=== PATIENT | female | born 1985 | race Two or more races ===

== ENCOUNTER 2021-01-15 18:00 | Emergency (ER) | payer MEDICAID ==
[~2021-01-15] VITALS: Ht 157.5 cm; Wt 66.0 kg
--- NOTE | 2021-01-15 18:36 | PHYS DOC ---
Past History Past Medical History: Anemia, Bronchitis Past Surgical History: Gastric Bypass Smoking: Cigarettes General Adult EDM: Chief Complaint: SHORTNESS OF BREATH HPI: HPI: ".. I ve been sick..the last couple of days..same as my .. been coughing up some discolor sputum.. feels like I got a fever..I worried.. I may gotten the COVID.. ..He had it earlier in the year.. " Patient is a 35 year old female who presents with above hx and complaints of dyspnea, myalgia, arthralgia, malaise, subjective fevers, cough with productive sputum, and increased wheezing. Patient states she has been ill the last couple days. Patient does smoke tobacco. Patient has not gotten Covid vaccination. Patient has not gotten flu vaccination. Patient does have a significant past medical history of gastric bypass, anemia, and bronchitis. Patient denies any history of DVT, or cardiac disorder, or coagulopathy. Patient denies any history of immunosuppression. No specific ill contacts other than her . No recent travel outside [facility]. Patient has not gotten Covid vaccination or flu vaccination. Patient never had a Pneumovax. Pt. follows with Sy Yeung. Review of Systems: Review of Systems: Constitutional: Subjective complaints of fever and chills Eyes: Denies change in visual acuity HENT: Denies nasal congestion or sore throat Respiratory: Complains of cough, sputum production, wheezing and shortness of breath Cardiovascular: Denies chest pain or edema GI: Denies abdominal pain, nausea, vomiting, bloody stools or diarrhea : Denies dysuria Musculoskeletal: Complains of generalized malaise arthralgia myalgia Integument: Denies rash Neurologic: Denies headache, focal weakness or sensory changes Endocrine: Denies polyuria or polydipsia Lymphatic: Denies swollen glands Psychiatric: Complains of anxiety Family History: Family History: Noncontributory to presentation Current Medications: Current Meds: See nursing for home meds Allergies: Allergies: Allergies Coded Allergies Type Severity Reaction Last Updated Verified NSAIDS (Non-Steroidal Anti-Inflamma Allergy Unknown 01/15/21 Yes bupropion Allergy Unknown 01/15/21 Yes paroxetine Allergy Unknown 01/15/21 Yes Physical Exam: PE: Constitutional: Moderate acute distress, non-toxic appearance. [] HENT: Normocephalic, atraumatic, bilateral external ears normal, oropharynx moist, no oral exudates, nose injected turbinates and clear rhinorrhea Eyes: PERRLA, EOMI, conjunctiva normal, no discharge. [] Neck: Normal range of motion, no tenderness, supple, no stridor. [] Cardiovascular:Heart rate regular rhythm, no murmur [] Lungs & Thorax: Bilateral breath sounds equal apex with scattered wheezes on auscultation. Does have bibasilar rhonchi and crackles which seem to clear after coughing. Does have a productive cough that is discolored. Abdomen: Bowel sounds increased,, soft, no tenderness, no masses, no pulsatile masses. Old surgery scars. Skin: Warm, dry, no erythema, no rash. [] Back: No tenderness, no CVA tenderness. [] Extremities: Complains of generalized muscle tenderness, no cyanosis, no clubbing, ROM intact, no edema. No cording appreciated but calves are tender. Neurologic: Alert and oriented X 3, moves all extremities on request, does have distal sensory, no focal deficits noted. [] Psychologic: Affect anxious, judgement normal, mood normal. [] Current Patient Data: Vital Signs: Vital Signs Date Time Temp Pulse Resp B/P (MAP) Pulse Ox O2 Delivery O2 Flow Rate FiO2 01/15/21 18:00 98.3 79 18 116/78 (91) 100 Room Air EKG: EKG: [] My interpretation EKG shows a sinus rhythm at rate of 79 bpm. No acute morphology. Time of EKG is 1941 hrs. Radiology/Procedures: Radiology/Procedures: [address] [address] IMAGING REPORT Signed PATIENT: BETI RICHARDS ACCOUNT: [id number] : 1985 LOCATION: ER AGE: 35 SEX: F EXAM STATUS: REG ER ORD. PHYSICIAN: MANAN REDDY MD REASON: dyspnea, OMNI 350, 90ml PROCEDURE: CT ANGIOGRAPHY CHEST Examination: CT angiography chest with IV contrast HISTORY: History of dyspnea COMPARISON: None TECHNIQUE: Axial CT angiographic images of chest were performed with IV contrast: Sagittal 3-D MIP reformats are performed Exposure: One or more of the following individualized dose reduction techniques were utilized for this examination: 1. Automated exposure control 2. Adjustment of the mA and/or kV according to patient size 3. Use of iterative reconstruction technique FINDINGS: The central airways are patent. The heart size grossly appears unremarkable. The ascending aorta measures 3 cm in transverse dimension. There is no evidence of filling defect identified in the main pulmonary arterial trunk and right and left main pulmonary arteries and visualized lobar, segmental branch of pulmonary arteries. Mild bibasilar lung airspace opacities likely atelectasis. The liver, spleen, adrenals grossly appears unremarkable. Prior changes of gastric surgery. No evidence of lytic bony destructive lesion. IMPRESSION: 1. No evidence of pulmonary embolism. 2. Mild bibasilar lung airspace opacities likely atelectasis. Electronically signed by: Naldo Reynolds MD (01/15/2021 11:52 PM) [id number] DICTATED AND SIGNED BY: NALDO REYNOLDS MD DATE: 01/15/212347 CC: MANAN REDDY MD; ROSIE ASTORGA ~[facility]0 [address] [place] [address] IMAGING REPORT Signed PATIENT: BETI RICHARDS ACCOUNT: [id number] : 1985 LOCATION: ER AGE: 35 SEX: F EXAM STATUS: REG ER ORD. PHYSICIAN: MANAN REDDY MD REASON: dyspnea, cough with productive sputum PROCEDURE: CHEST PA & LATERAL XR CHEST 2V CLINICAL INDICATIONS: Reason: dyspnea, cough with productive sputum / Spl. Instructions: / History: COMPARISON: None available. Findings: No acute lung infiltrate or pleural effusion or pulmonary edema or lung mass or pneumothorax is seen. The heart size, pulmonary vasculature, mediastinum and both hallie are unremarkable. The osseous structures appear intact. IMPRESSION: No acute radiographic abnormality is seen. Electronically signed by: Edmund Horowitz MD (01/15/2021 8:03 PM) [id number] DICTATED AND SIGNED BY: EDMUND HOROWITZ MD DATE: 01/15/212002 CC: MANAN REDDY MD; ROSIE ASTORGA ~MTH0 0 [][address] [id number] IMAGING REPORT Signed PATIENT: GERRY DISLA ACCOUNT: [id number] : 06/27/1929 LOCATION: ER AGE: 89 SEX: F EXAM STATUS: REG ER ORD. PHYSICIAN: FROY NIELSON MD REASON: picc line pulled out PROCEDURE: CHEST AP ONLY XR CHEST 1V 1:37 PM. CLINICAL INDICATIONS: Reason: picc line pulled out / Spl. Instructions: / History: COMPARISON: January 02, 2021. Findings: No acute lung infiltrate or pleural effusion or pulmonary edema or l zenia mass or pneumothorax is seen. The heart size, pulmonary vasculature, mediastinum and both hallie are stable. No radiopaque PICC line remnant is seen. IMPRESSION: No acute radiographic abnormality is seen. Electronically signed by: Edmund Horowitz MD (01/15/2021 1:54 PM) [id number] DICTATED AND SIGNED BY: EDMUND HOROWITZ MD DATE: 01/15/21 1352 CC: FROY NIELSON MD; AUGUSTINE HADLEY MD ~MTH0 0 Heart Score: C/O Chest Pain: No HEART Score for Chest Pain: HEART Score for Chest Pain Response (Comments) Value History Slighlty/Non-Suspicious 0 ECG Normal 0 Age < 45 0 Risk Factors 1 or 2 Risk Factors 1 Troponin < Normal Limit 0 Total 1 Risk Factors: Risk Factors: DM, Current or recent (<one month) smoker, HTN, HLP, family history of CAD, obesity. Risk Scores: Score 0 - 3: 2.5% MACE over next 6 weeks - Discharge Home Score 4 - 6: 20.3% MACE over next 6 weeks - Admit for Clinical Observation Score 7 - 10: 72.7% MACE over next 6 weeks - Early Invasive Strategies Course & Med Decision Making: Course & Med Decision Making Pertinent Labs and Imaging studies reviewed. (See chart for details) Patient use MDI 2 puffs 4 times a day. Patient take prednisone 50 mg a day. Patient taking Zithromax 250 mg a day. Patient follow-up primary care. Strongly encourage patient to stop smoking. Recommend patient get COVID vaccination after she is over this acute illness. Patient self isolate. Until Covid results known. Recommend patient get flu vaccination went over this acute illness. Recommend patient get Pneumovax when she is over this acute illness. Patient take Tylenol and ibuprofen for discomfort. Did give patient a dose of Lovenox. Patient to follow-up with 0800 hrs. for ultrasound of legs to rule out DVT. Patient informed to practice deep breathing.. Patient practice self- isolation and wear a mask covering her nose and mouth until Covid results are known. Patient encouraged to follow-up primary care. Follow-up with Dr. Astorga to review ED work-up and ultrasound results. Recommend patient get COVID vaccination went over this acute illness. Impression: 1. Viral Syndrome 2. Bronchial Pneumonia 3. Leukocytosis 14.1 4. Elevated D-=dimer 1.67 5. Bibasilar atelectasis 6. History of gastric bypass 7, Tobacco Use [] Dragon Disclaimer: Dragon Disclaimer: This electronic medical record was generated, in whole or in part, using a voice recognition dictation system. Departure Departure: Referrals: ROSIE ASTORGA (PCP) Scripts Prednisone (PREDNISONE) 50 Mg Tablet 50 MG PO DAILY for bronchitis for 5 Days, #5 TAB Prov: MANAN REDDY MD 01/16/21 Azithromycin (ZITHROMAX) 250 Mg Tablet 250 MG PO DAILY for ANTI-BIOTIC for 5 Days, #5 TAB 0 Refills Prov: MANAN REDDY MD 01/16/21 Dragon Disclaimer This chart was dictated in whole or in part using Voice Recognition software in a busy, high-work load, and often noisy Emergency Department environment. It may contain unintended and wholly unrecognized errors or omissions. Dragon Disclaimer This chart was dictated in whole or in part using Voice Recognition software in a busy, high-work load, and often noisy Emergency Department environment. It may contain unintended and wholly unrecognized errors or omissions. Dragon Disclaimer This chart was dictated in whole or in part using Voice Recognition software in a busy, high-work load, and often noisy Emergency Department environment. It may contain unintended and wholly unrecognized errors or omissions. Dragon Disclaimer This chart was dictated in whole or in part using Voice Recognition software in a busy, high-work load, and often noisy Emergency Department environment. It may contain unintended and wholly unrecognized errors or omissions. MANAN REDDY MD Jan 15, 2021 18:35
[2021-01-15] MEDS ORDERED: ONDANSETRON PF 4 MG/2 ML VIAL. IVP ONE (19:30)
[2021-01-15] MEDS ORDERED: IV RINGERS SOLUTION,LACTATED 1,000 ML IV SCH (19:30)
[2021-01-15] MEDS ORDERED: ALBUTEROL SULFATE 8GM INHALER. INH ONE (19:30)
[2021-01-15] MEDS ORDERED: predniSONE 20 MG TABLET PO ONE (19:30)
[2021-01-15] MEDS ORDERED: AZITHROMYCIN 250 MG TABLET. PO ONE (19:30)
[2021-01-15] MEDS ORDERED: KETOROLAC 30 MG/ML VIAL. IVP ONE (19:45)
[2021-01-15 20:05] LABS: BARBITURATES NEG (NEG); BENZODIAZEPINES NEG (NEG); CANNABINOIDS NEG (NEG); COCAINE NEG (NEG); METHADONE NEG (NEG); OPIATES NEG (NEG); PHENCYCLIDINE NEG (NEG)
--- NOTE | 2021-01-15 20:06 | RAD ---
XR CHEST 2V CLINICAL INDICATIONS: Reason: dyspnea, cough with productive sputum / Spl. Instructions: / History: COMPARISON: None available. Findings: No acute lung infiltrate or pleural effusion or pulmonary edema or lung mass or pneumothora x is seen. The heart size, pulmonary vasculature, mediastinum and both hallie are unremarkable. The os seous structures appear intact. IMPRESSION: No acute radiographic abnormality is seen. Electronically signed by: Jose Horowitz MD (01/15/2021 8:03 PM) [id number]
[2021-01-15 20:08] LABS: AMPHETAMINE/METHAMPHETAMINE NEG (NEG)
[2021-01-15 20:09] LABS: BACTERIA,URINE 0 /HPF (0-FEW); BILIRUBIN,URINE NEG (NEG); CLARITY,URINE CLEAR; COLOR,URINE YELLOW; GLUCOSE,URINE NEG (NEG); NITRITE,URINE NEG (NEG); RBC,URINE 0 /HPF (0-2); SQUAMOUS EPITHELIAL CELL,UR FEW /LPF; UROBILINOGEN,URINE 0.2 mg/dL (0.2 mg/dL); WBC,URINE 0 /HPF (0-4)
[2021-01-15 20:24] LABS: INFLUENZA A PATIENT NEGATIVE (NEGATIVE); INFLUENZA B PATIENT NEGATIVE (NEGATIVE)
[2021-01-15] MEDS ORDERED: diphenhydrAMINE 50 MG/ML VIAL ONE (20:32)
[2021-01-15] MEDS ORDERED: diphenhydrAMINE 50 MG/ML VIAL IV ONE (20:45)
--- NOTE | 2021-01-15 20:52 | EKG ---
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
[2021-01-15 21:05] LABS: BASO # 0.1 x10^3/uL (0.0-0.2); BASO % 1 % (0-3); EOS # 0.1 x10^3/uL (0.0-0.7); EOS % 1 % (0-3); HEMATOCRIT 42.2 % (36.0-47.0); HEMOGLOBIN 13.9 g/dL (12.0-15.5); LYMPH # 3.5 x10^3/uL (1.0-4.8); LYMPH % 25 % (24-48); MEAN CORPUSCULAR HEMOGLOBIN 29 pg (25-35); MEAN CORPUSCULAR HGB CONC 33 g/dL (31-37); MEAN CORPUSCULAR VOLUME 89 fL (79-100); MONO # 0.9 x10^3/uL (0.0-1.1); MONO % 6 % (0-9); NEUT # 9.5 x10^3uL (1.8-7.7); NEUT % 67 % (31-73); PLATELET COUNT 257 x10^3/uL (140-400); RED BLOOD COUNT 4.72 x10^6/uL (3.50-5.40); RED CELL DISTRIBUTION WIDTH 13.4 % (11.5-14.5); WHITE BLOOD COUNT 14.1 x10^3/uL (4.0-11.0)
[2021-01-15 21:17] LABS: CALCIUM 9.4 mg/dL (8.5-10.1); CREATININE 0.7 mg/dL (0.6-1.0); GFR 95.2
[2021-01-15 21:30] LABS: ALBUMIN 3.9 g/dL (3.4-5.0); DIRECT BILIRUBIN 0.1 mg/dL (0.0-0.2); MAGNESIUM 1.9 mg/dL (1.8-2.4); TOTAL BILIRUBIN 0.4 mg/dL (0.2-1.0); TOTAL PROTEIN 7.1 g/dL (6.4-8.2)
[2021-01-15] MEDS ORDERED: CONTRAST GIVEN. MC PRN (22:30)
[2021-01-15] MEDS ORDERED: IOHEXOL 350 MG/ML 100 ML VIAL. IV ONE (22:30)
[2021-01-15] MEDS ORDERED: ENOXAPARIN ** NOTE DOSE ** SYRINGE SQ ONE (22:30)
--- NOTE | 2021-01-15 23:54 | RAD ---
Examination: CT angiography chest with IV contrast HISTORY: History of dyspnea COMPARISON: None TECHNIQUE: Axial CT angiographic images of chest were performed with IV contrast: Sagittal 3-D MIP re formats are performed Exposure: One or more of the following individualized dose reduction techniques were utilized for thi s examination: 1. Automated exposure control 2. Adjustment of the mA and/or kV according to patient size 3. Use of iterative reconstruction technique FINDINGS: The central airways are patent. The heart size grossly appears unremarkable. The ascending aorta alexey ures 3 cm in transverse dimension. There is no evidence of filling defect identified in the main pulm onary arterial trunk and right and left main pulmonary arteries and visualized lobar, segmental branc h of pulmonary arteries. Mild bibasilar lung airspace opacities likely atelectasis. The liver, spleen , adrenals grossly appears unremarkable. Prior changes of gastric surgery. No evidence of lytic bony destructive lesion. IMPRESSION: 1. No evidence of pulmonary embolism. 2. Mild bibasilar lung airspace opacities likely atelectasis. Electronically signed by: Naldo Reynolds MD (01/15/2021 11:52 PM) [id number]
[2021-01-16] MEDS ORDERED: AZIT250T PO (00:22)
[2021-01-16] MEDS ORDERED: PRED50TA PO (00:23)
[2021-01-16] MEDS ORDERED: LORazepam 1 MG TABLET PO ONE (00:30)
[2021-01-16 00:47] VITALS: BP 97/64
== END 2021-01-16 00:50 | disposition home or self-care (01) ==
LOC: ER 18:00
DX: J18.0 Bronchopneumonia, unspecified organism (principal); B34.9 Viral infection, unspecified; D72.89 Other specified disorders of white blood cells; R79.1 Abnormal coagulation profile; J98.11 Atelectasis; F17.210 Nicotine dependence, cigarettes, uncomplicated; Z20.822 Contact with and (suspected) exposure to COVID-19; Z98.84 Bariatric surgery status; Z86.2 Personal history of diseases of the blood and blood-forming organs and certain disorders involving the immune mechanism; Z88.6 Allergy status to analgesic agent; Z88.8 Allergy status to other drugs, medicaments and biological substances
CPT/HCPCS: 36415; 71046; 71275; 80048; 80076; 80307; 81001; 82550; 83690; 83735; 83880; 84443; 84484; 85025; 85379; 87070; 87426; 87804; 87880; 93005; 94640; 96361; 96372; 96374; 96375; 99285; C9803; J1200; J1650; J1885; J2405; J7120; J7512; Q9967; U0003; 94664

== ENCOUNTER → 2021-01-16 | Outpatient (CLI) | payer MEDICAID ==
[~2021-01-16] MED LIST: AZIT250T PO; PRED50TA PO
[2021-01-16 00:47] VITALS: BP 97/64
--- NOTE | 2021-01-16 10:12 | RAD ---
INDICATION: Reason: LEG SWELLING, PAIN / Spl. Instructions: / History: COMPARISON: None. TECHNIQUE: Grayscale, color and doppler ultrasound images were obtained of the bilateral lower extrem ity venous vasculature. RIGHT: No thrombus identified in the common femoral vein, femoral vein, popliteal vein or visualized calf ve ins. LEFT: No thrombus identified in the common femoral vein, femoral vein, popliteal vein or visualized calf ve ins. IMPRESSION: * No thrombus identified in deep venous system of bilateral lower extremities. Electronically signed by: Davi Augustin MD (01/16/2021 10:09 AM) [id number]
== END ==
LOC: RAD 08:52
PROVIDERS: ATTEND Emergency Medicine
DX: M79.604 Pain in right leg (principal); M79.605 Pain in left leg; M79.89 Other specified soft tissue disorders
CPT/HCPCS: 93970

== ENCOUNTER 2021-03-05 23:22 | Emergency (ER) | payer MEDICAID ==
[~2021-03-05] VITALS: Ht 157.5 cm; Wt 66.0 kg
[2021-03-05 23:36] VITALS: BP 116/78
[2021-03-05] MEDS ORDERED: guaiFENesin/CODEINE 100mg/10mg 5 ML LIQUID PO ONE (23:45)
[2021-03-05] MEDS ORDERED: ACETAMINOPHEN 500 MG TABLET PO ONE (23:45)
--- NOTE | 2021-03-05 23:52 | PHYS DOC ---
Past History Past Medical History: Anemia, Bronchitis Additional Past Medical Histor: COVID Past Surgical History: Gastric Bypass Smoking: Cigarettes Alcohol Use: Occasionally Adult General HPI HPI Patient is a 36-year-old female with a past medical history of smoking who presents with a chief complaint of weeks of productive cough and nasal c ongestion. Denies any recent traumas, travels, other illnesses, fevers, chest pain, shortness of breath, abdominal pain, nausea, vomiting, diarrhea. States she is eating and drinking normally. States he is making urine and stool normally for her. States that even though it has been going on a couple weeks she has not had time to call her primary care physician. Review of Systems Review of Systems Review of systems otherwise unremarkable except noted in HPI Allergies Allergies Allergies Coded Allergies Type Severity Reaction Last Updated Verified NSAIDS (Non-Steroidal Anti-Inflamma Allergy Unknown Patient had gastric bypass 01/15/21 Yes bupropion Allergy Unknown 01/15/21 Yes paroxetine Allergy Unknown 01/15/21 Yes Physical Exam Physical Exam Constitutional: Well developed, well nourished, no acute distress, non-toxic appearance. [] HENT: Normocephalic, atraumatic, bilateral external ears normal, bilateral tympanic membranes clear, high oropharynx moist, no oral exudates, nose normal. [] Eyes: conjunctiva normal, no discharge. [] Neck: Normal range of motion, no tenderness, supple, no stridor. [] Cardiovascular:Heart rate regular rhythm, no murmur [] Lungs & Thorax: No respiratory distress or wheezing, mild upper respiratory congestion Abdomen: soft, no tenderness, no masses, no pulsatile masses. [] Skin: Warm, dry, no erythema, no rash. [] Extremities: No tenderness, ROM intact, no edema. [] Neurologic: Alert and oriented X 3, no focal deficits noted. [] Psychologic: Affect normal, judgement normal, mood normal. [] EKG EKG [] Radiology/Procedures Radiology/Procedures [] Heart Score C/O Chest Pain: No Risk Factors: Risk Factors: DM, Current or recent (<one month) smoker, HTN, HLP, family history of CAD, obesity. Risk Scores: Risk Factors: DM, Current or recent (<one month) smoker, HTN, HLP, family history of CAD, obesity. Course & Med Decision Making Course & Med Decision Making Patient is a 36-year-old female who presents with productive cough nasal congestion for couple days Vital signs not concerning. Physical exam noted above. Given Tylenol and cough medicine. Covid swab pending. Chest x-ray not concerning. Discussed all findings with patient. Given Covid education and instructions for quarantine at home. Advised on symptomatic treatment for home. Discussed all findings with patient. Advised to follow-up in the morning with primary care physician. Gave return precautions to the ED. Patient grateful, verbalized understanding and agreed with plan of discharge. [] Dragon Disclaimer Dragon Disclaimer This electronic medical record was generated, in whole or in part, using a voice recognition dictation system. Departure Departure: Impression: Primary Impression: Viral syndrome Disposition: HOME / SELF CARE / HOMELESS Condition: GOOD Referrals: ROSIE GARCIA (PCP) Patient Instructions: Viral Syndrome Additional Instructions: Thank you for coming into the emergency department tonight and allowing us to take care of you. Please read the attached information carefully to go back over some of the things we discussed. Please continue a Tylenol, and [id number] cold medicine regimen as we discussed. You can also use Benadryl. Please be sure to stay well-hydrated, take a multivitamin eat at least 3 nutritious meals daily. It is very important that you follow-up in the morning with your primary care physician to discuss your ED visit and let them know that you have been swabbed for Covid and are awaiting results. Your results should be back in 24 to 48 hours. Until then. Please read the attached information and quarantine appropriately. Please come back with new or concerning symptoms as we discussed. You have been tested for or diagnosed with COVID-19. It is an infection caused by a new type of coronavirus. COVID-19 will cause cold-like or mild flu symptoms in most. It can cause more severe symptoms like problems breathing in some. There is no treatment for COVID-19. The body will clear the infection over time. Self-care will help to ease discomfort. Steps to Take: Self-Care Rest as needed. Healthy habits may help you feel better. Steps include: Choose healthy foods including fruits and vegetables. Drink water throughout the day. Get plenty of sleep each night. If you smoke, try to quit. It may ease breathing. Avoid alcohol. Keep Others Healthy The virus can spread to others. Droplets are released every time you sneeze or cough. The droplets can get into the mouth, nose, or eyes of people near you and lead to infection. To lower the chances of spreading COVID-19 to others: Stay at home until your doctor has said it is safe to leave. If you tested positive this will mean staying isolated until both of the following are true: At least 7 days have passed since the start of illness. You are free of fever for at least 72 hours without the use of medicine. During this time: - Avoid public areas, events, or transportation. Do not return to work or school until your doctor has said it is safe to do so. - Call ahead if you need to go to a medical center. Let them know you may have COVID-19. It will help them guide you where to go. They may also ask you to wear a facemask when you come to the office. - If you call for emergency medical services, let them know you may have COVID- 19. While at home: - Try to avoid close contact with others. Stay about 6 feet away. - If possible, spend most of your time in a separate room from others. - Use a face mask if you will be in close contact with others such as sharing a room or vehicle. - Have someone wipe down common surfaces in the home. Use household director airport operations every day on areas like doorknobs, counters, or sinks. - Cough or sneeze into a tissue. Throw the tissue away right after use. If a tissue is not available, cough or sneeze into your elbow. - Wash your hands often. Wash them after sneezing or coughing. Use soap and water and wash for at least 20 seconds. Alcohol based hand glass mould cleaner can be used if soap and water is not available. - Do not prepare food for others. Avoid sharing personal items like forks, spoons, or toothbrushes. - Avoid close contact with pets while you are sick. There is no evidence of the virus passing to pets. This is a safety step until more is known about this virus. Isolation can be frustrating. Social interaction can help. Keep in touch with friends and family through phone and tech options. You can still interact with others in your home, just keep a safe distance of about 6 feet. Follow-up: Your doctors office will check in with you to see if there are any changes in your health. You may be asked to keep track of symptoms to share with them. They will also let you know when you are clear to be in public again. Problems to Look Out For: Contact your doctor if your recovery is not going as you expect. Get emergency care if you have problems such as: - Trouble breathing - Nonstop chest pain or pressure - Changes in awareness, confusion, or problems waking - Lips or face have bluish color - Worsening of symptoms If you think you have an emergency, call for emergency medical services right away. As taken from [facility] MD Mar 05, 2021 23:52
--- NOTE | 2021-03-06 00:19 | RAD ---
XR CHEST 1V INDICATION: cough COMPARISON STUDY: None. FINDINGS: Lungs: Normal lung volume. No pulmonary mass or consolidation. The tracheobronchial tree and hilar st ructures are normal. Pleura: No pleural effusion or pneumothorax. Heart and Mediastinum: The cardiomediastinal silhouette is normal. The great vessels of the thorax ar e normal. Bones and Soft Tissues: The bones and soft tissues are within normal limits. IMPRESSION: No acute cardiopulmonary process. Electronically signed by: Galdino Dubois MD (03/06/2021 12:16 AM) [facility]NDO
== END 2021-03-06 00:05 | disposition home or self-care (01) ==
LOC: ER 23:22
DX: B34.9 Viral infection, unspecified (principal); Z20.822 Contact with and (suspected) exposure to COVID-19; F17.210 Nicotine dependence, cigarettes, uncomplicated; Z86.2 Personal history of diseases of the blood and blood-forming organs and certain disorders involving the immune mechanism; Z98.84 Bariatric surgery status; Z88.6 Allergy status to analgesic agent; Z88.8 Allergy status to other drugs, medicaments and biological substances
CPT/HCPCS: 71045; 99284; C9803; U0003

== ENCOUNTER 2021-03-20 13:30 | Emergency (ER) | payer MEDICAID ==
[~2021-03-20] VITALS: Ht 157.5 cm; Wt 66.0 kg
[2021-03-20 14:29] VITALS: BP 108/75
[2021-03-20 15:24] LABS: INFLUENZA A PATIENT NEGATIVE (NEGATIVE); INFLUENZA B PATIENT NEGATIVE (NEGATIVE)
--- NOTE | 2021-03-20 16:01 | PHYS DOC ---
Past History Past Medical History: Anemia, Bronchitis Additional Past Medical Histor: COVID Past Surgical History: , Gastric Bypass, Hysterectomy Smoking: Cigarettes Alcohol Use: None Adult General Chief Complaint Chief Complaint: FEVER HPI HPI Patient is a 36-year-old female presents to the emergency department concerning generalized malaise with fever and chills at home, cough, nasal congestion with sore throat, denies being vaccinated for the COVID-19 virus, patient states she is worried she may have the COVID-19 virus and wishes to be tested today. Patient denies other people living in her home with same symptoms or shakes, patient reports her last menstrual cycle was 4 years ago when she had her total hysterectomy. Patient denies chest pain or chest congestion. Patient denies other physical complaints or physical concerns. Review of Systems Review of Systems 14 body systems of review of systems have been reviewed. See HPI for pertinent positives and negative responses, otherwise all other systems are negative, nonpertinent or noncontributory. Constitutional: Negative except as outlined in HPI above. Skin: Negative except as outlined in HPI above. Eyes: Negative except as outlined in HPI above. HENT: Negative except as outlined in HPI above. Respiratory: Negative except as outlined in HPI above. Cardiovascular: Negative except as outlined in HPI above. GI: Negative except as outlined in HPI above. : Negative except as outlined in HPI above. Musculoskeletal: Negative except as outlined in HPI above. Integument: Negative except as outlined in HPI above. Neurologic: Negative except as outlined in HPI above. Endocrine: Negative except as outlined in HPI above. Lymphatic: Negative except as outlined in HPI above. Psychiatric: Negative except as outlined in HPI above. Allergies Allergies Allergies Coded Allergies Type Severity Reaction Last Updated Verified NSAIDS (Non-Steroidal Anti-Inflamma Allergy Unknown Patient had gastric bypass 01/15/21 Yes bupropion Allergy Unknown 01/15/21 Yes paroxetine Allergy Unknown 01/15/21 Yes Physical Exam Physical Exam Constitutional: Well developed, well nourished, no acute distress, non-toxic appearance. 36-year-old female in no apparent distress. HENT: Normocephalic, atraumatic. Oropharynx moist, pink, no deep tissue infectious process appreciated, no uvular edema or deviation, no laryngeal edema, no drooling, no trismus, patient speaking in normal voice tones, bilateral TMs within normal limits, no lymphadenopathy of the head or neck appreciated. Bilateral nasal turbinates moist, patent. Eyes: Conjunctiva normal, no discharge. Neck: Normal range of motion, no stridor. No nuchal rigidity, no meningismus signs. Cardiovascular: No cyanosis appreciated, distal cap refill less than 2 seconds. Lungs & Thorax: Patient is in no respiratory distress, no audible adventitious lung sounds appreciated. Abdomen: Nontender, no abnormalities noted. Skin: Warm, dry, no erythema, no rash. Back: No tenderness, no deformities. Extremities: No tenderness, no cyanosis, no clubbing, ROM intact, no edema. Neurologic: Alert and oriented X 3, normal motor function, normal sensory function, no focal deficits noted. Psychologic: Affect normal, judgement normal, mood normal. Current Patient Data Vital Signs Vital Signs Date Time Temp Pulse Resp B/P (MAP) Pulse Ox O2 Delivery O2 Flow Rate FiO2 03/20/21 14:29 98.0 78 14 108/75 (86) 97 Room Air Lab Results Laboratory Tests Test 03/20/21 14:32 Influenza Type A (Rapid) Negative (NEGATIVE) Influenza Type B (Rapid) Negative (NEGATIVE) EKG EKG [] Radiology/Procedures Radiology/Procedures [] Heart Score C/O Chest Pain: No Risk Factors: Risk Factors: DM, Current or recent (<one month) smoker, HTN, HLP, family history of CAD, obesity. Risk Scores: Risk Factors: DM, Current or recent (<one month) smoker, HTN, HLP, family history of CAD, obesity. Course & Med Decision Making Course & Med Decision Making Pertinent Labs and Imaging studies reviewed. (See chart for details) 36-year-old female, vital signs reviewed, resents emergency department concerning URI type signs and symptoms. Physical presentation examination unremarkable, patient's complaints are consistent with viral syndrome, will order rapid flu A/B, Covid PCR testing. Patient rapid flu negative, PCR Covid19 pending, discussed findings with p oj, discussed with patient COVID-19 virus PUI, will give information on discharge instructions, discussed social distancing, will give work excuse pending PCR results, patient gave verbal understanding of and is amenable to ED discharge planning. Discussed with the patient all findings and diagnostic testing as well as the need to follow-up with their primary care provider for further evaluation and treatment or return to the ED if any new or worsening symptoms. Strict return precautions were also discussed at length, the patient voiced understanding and agreement with the discharge planning. The patient was nontoxic in appearance, in no apparent distress, and hemodynamically stable at the time of disposition. Dragon Disclaimer Dragon Disclaimer This electronic medical record was generated, in whole or in part, using a voice recognition dictation system. Departure Departure: Impression: Primary Impression: Person under investigation for COVID-19 Additional Impression: Viral syndrome Disposition: HOME / SELF CARE / HOMELESS Condition: GOOD Referrals: ROSIE GARCIA (PCP) Patient Instructions: Viral Syndrome Additional Instructions: You were seen today in the emergency department for viral type illness. You were tested for the flu and Covid19, your rapid flu test is negative, however your Covid19 PCR test is pending, the results should be available within the next 48 to 72 hours. Until then please practice safe social distancing, I have attached COVID-19 virus information to this document, please review. Please follow-up with your primary care physician for ongoing symptoms, return to the emergency department for worsening symptoms or other concerns. You may take [id number] Tylenol and or Motrin for aches and pains. Thank you for visiting our Emergency Department. It was a pleasure taking care of you today in the emergency department and we appreciate you trusting us with your care. If any additional problems come up don't hesitate to return to visit us. Please follow up with your primary care provider so they can plan additional care if needed and know about the problem that you had. If symptoms worsen come back to the Emergency Department. Any concerning symptoms that start such as chest pain, shortness of air, weakness or numbness on one side of the body, running high fevers or any other concerning symptoms return to the ER. You have been tested for or diagnosed with COVID-19. It is an infection caused by a new type of coronavirus. COVID-19 will cause cold-like or mild flu symptoms in most. It can cause more severe symptoms like problems breathing in some. There is no treatment for COVID-19. The body will clear the infection over time. Self-care will help to ease discomfort. Steps to Take: Self-Care Rest as needed. Healthy habits may help you feel better. Steps include: Choose healthy foods including fruits and vegetables. Drink water throughout the day. Get plenty of sleep each night. If you smoke, try to quit. It may ease breathing. Avoid alcohol. Keep Others Healthy The virus can spread to others. Droplets are released every time you sneeze or cough. The droplets can get into the mouth, nose, or eyes of people near you and lead to infection. To lower the chances of spreading COVID-19 to others: Stay at home until your doctor has said it is safe to leave. If you tested positive this will mean staying isolated until both of the following are true: At least 7 days have passed since the start of illness. You are free of fever for at least 72 hours without the use of medicine. During this time: - Avoid public areas, events, or transportation. Do not return to work or school until your doctor has said it is safe to do so. - Call ahead if you need to go to a medical center. Let them know you may have COVID-19. It will help them guide you where to go. They may also ask you to wear a facemask when you come to the office. - If you call for emergency medical services, let them know you may have COVID- 19. While at home: - Try to avoid close contact with others. Stay about 6 feet away. - If possible, spend most of your time in a separate room from others. - Use a face mask if you will be in close contact with others such as sharing a room or vehicle. - Have someone wipe down common surfaces in the home. Use household oven tender bagels every day on areas like doorknobs, counters, or sinks. - Cough or sneeze into a tissue. Throw the tissue away right after use. If a tissue is not available, cough or sneeze into your elbow. - Wash your hands often. Wash them after sneezing or coughing. Use soap and water and wash for at least 20 seconds. Alcohol based hand line cleaner can be used if soap and water is not available. - Do not prepare food for others. Avoid sharing personal items like forks, spoons, or toothbrushes. - Avoid close contact with pets while you are sick. There is no evidence of the virus passing to pets. This is a safety step until more is known about this virus. Isolation can be frustrating. Social interaction can help. Keep in touch with friends and family through phone and tech options. You can still interact with others in your home, just keep a safe distance of about 6 feet. Follow-up: Your doctors office will check in with you to see if there are any changes in your health. You may be asked to keep track of symptoms to share with them. They will also let you know when you are clear to be in public again. Problems to Look Out For: Contact your doctor if your recovery is not going as you expect. Get emergency care if you have problems such as: - Trouble breathing - Nonstop chest pain or pressure - Changes in awareness, confusion, or problems waking - Lips or face have bluish color - Worsening of symptoms If you think you have an emergency, call for emergency medical services right away. As taken from [facility] Problem Qualifiers GREGORIO BROWN APRN Mar 20, 2021 16:01
[2021-03-20] MEDS ORDERED: ACETAMINOPHEN 500 MG TABLET PO ONE (16:30)
--- NOTE | 2021-03-22 16:22 | NUR ---
PATIENT NOTIFIED OF COVID RESULTS
== END 2021-03-20 16:45 | disposition home or self-care (01) ==
LOC: ER 13:30
DX: B34.9 Viral infection, unspecified (principal); F17.210 Nicotine dependence, cigarettes, uncomplicated; Z20.822 Contact with and (suspected) exposure to COVID-19; Z86.2 Personal history of diseases of the blood and blood-forming organs and certain disorders involving the immune mechanism; Z88.6 Allergy status to analgesic agent; Z88.8 Allergy status to other drugs, medicaments and biological substances
CPT/HCPCS: 87804; 99283; C9803; U0003

== ENCOUNTER 2021-04-03 21:50 | Emergency (ER) | payer MEDICAID ==
[~2021-04-03] VITALS: Ht 160 cm; Wt 66.0 kg
[2021-04-03 21:59] VITALS: BP 128/82
--- NOTE | 2021-04-03 22:02 | PHYS DOC ---
Past History Past Medical History: Anemia, Bronchitis Additional Past Medical Histor: COVID Past Surgical History: , Gastric Bypass, Hysterectomy Smoking: Cigarettes Alcohol Use: None General Adult EDM: Chief Complaint: DENTAL PROBLEM HPI: HPI: ",,,I ve got bad dental pain.. or something wrong with the Rt. side of my face.....".." I had something like this before.. and needed some Rocephin shot.. and antibiotic.. the whole side my face hurts with these teeth here on the upper right..." Patient is a 36 year old female who presents with above hx and complaints of dental pain. Teeth appear to be in fairly good repair. Minimal findings of synovitis or dental caries. Pain seems to be primarily over her maxillary sinus area. No zoster rash appreciated. No temporal artery or area sensitivity to touch. Does not appear to be a trigeminal or facial neurology. Has good bite. No adenopathy. Does have swollen turbinates with clear rhinorrhea. Tenderness over percussion of right maxillary area. There is slight adenopathy at the angle of mandible. No history immunosuppression no history of trauma. No history of recent travel. No history specific ill contacts. Review of Systems: Review of Systems: Constitutional: Denies fever or chills Eyes: Denies change in visual acuity HENT: Denies nasal congestion or sore throat. Complains of right facial pain and dental pain Respiratory: Denies cough or shortness of breath Cardiovascular: Denies chest pain or edema GI: Denies abdominal pain, nausea, vomiting, bloody stools or diarrhea : Denies dysuria Musculoskeletal: Denies back pain or joint pain Integument: Denies rash Neurologic: Denies headache, focal weakness or sensory changes Endocrine: Denies polyuria or polydipsia Lymphatic: Denies swollen glands Psychiatric: Denies depression or anxiety Family History: Family History: Noncontributory to presentation Current Medications: Current Meds: See nursing for home meds Allergies: Allergies: Allergies Coded Allergies Type Severity Reaction Last Updated Verified NSAIDS (Non-Steroidal Anti-Inflamma Allergy Unknown Patient had gastric bypass 01/15/21 Yes bupropion Allergy Unknown 01/15/21 Yes paroxetine Allergy Unknown 01/15/21 Yes Physical Exam: PE: Constitutional: Well developed, well nourished, no acute distress, non-toxic appearance. [] HENT: Normocephalic, atraumatic, bilateral external ears normal, oropharynx moist, no oral exudates, nose swollen turbinates and clear rhinorrhea, right facial and dental pain. No temporal artery tenderness. Eyes: PERRLA, EOMI, conjunctiva normal, no discharge. [] Neck: Normal range of motion, no tenderness, supple, no stridor. [] Cardiovascular:Heart rate regular rhythm, no murmur [] Lungs & Thorax: Bilateral breath sounds clear to auscultation [] Abdomen: Bowel sounds normal, soft, no tenderness, no masses, no pulsatile masses. Old surgery scars Skin: Warm, dry, no erythema, no rash. [] Back: No tenderness, no CVA tenderness. [] Extremities: No tenderness, no cyanosis, no clubbing, ROM intact, no edema. [] Neurologic: Alert and oriented X 3, normal motor function, normal sensory function, no focal deficits noted. [] Psychologic: Affect anxious, judgement normal, mood normal. [] EKG: EKG: [] Radiology/Procedures: Radiology/Procedures: [] Heart Score: C/O Chest Pain: N/A Risk Factors: Risk Factors: DM, Current or recent (<one month) smoker, HTN, HLP, family history of CAD, obesity. Risk Scores: Score 0 - 3: 2.5% MACE over next 6 weeks - Discharge Home Score 4 - 6: 20.3% MACE over next 6 weeks - Admit for Clinical Observation Score 7 - 10: 72.7% MACE over next 6 weeks - Early Invasive Strategies Course & Med Decision Making: Course & Med Decision Making Pertinent Labs and Imaging studies reviewed. (See chart for details) Patient teeth in fair repair and no gingivitis. Suspect this is more a sinus inflammation. Patient take amoxicillin 500 mg 3 times a day. After completing amoxicillin take Diflucan 100 mg x 3 days. Use Flonase nasal spray 2 sprays at night every night. Use with normal saline rinses. Try uses Benadryl and/or Sudafed for sinus complaints. Use frequent nasal saline rinses. May use Afrin spray in the nose at night before going to bed. Follow-up primary care. Return if any concerns. Impression: 1. Facial pain 2. Sinusitis 3. Dental pain-(does not appear to be dental related) [] Dragon Disclaimer: Dragon Disclaimer: This electronic medical record was generated, in whole or in part, using a voice recognition dictation system. Departure Departure: Referrals: ROSIE GARCIA (PCP) Scripts Fluconazole (DIFLUCAN) 100 Mg Tablet 100 MG PO DAILY for post antibiotic for 3 Days, #3 TAB Prov: MANAN REDDY MD 04/03/21 Cephalexin (KEFLEX) 500 Mg Capsule 500 MG PO TID for silnusitis for 14 Days, #42 CAP Prov: MANAN REDDY MD 04/03/21 Fluticasone Propionate (Flonase Allergy Relief) 9.9 Ml [place].susp 2 SPRAYS NS DAILY for sinusitis for 30 Days, ML Prov: MANAN REDDY MD 04/03/21 MANAN REDDY MD Apr 03, 2021 22:02
[2021-04-03] MEDS: cefTRIAXone IM 1 GM VIAL IM ONE (22:15)
[2021-04-03] MEDS ORDERED: CEPH500C PO (22:22)
[2021-04-03] MEDS ORDERED: FLUC100T7 PO (22:22)
[2021-04-03] MEDS ORDERED: FLUT9.9S NS (22:22)
[2021-04-03] MEDS: oxyCODONE/APAP 5/325 1 TAB TABLET PO ONE (22:30)
== END 2021-04-03 22:30 | disposition home or self-care (01) ==
LOC: ER 21:50
DX: J32.9 Chronic sinusitis, unspecified (principal); K08.89 Other specified disorders of teeth and supporting structures; F17.210 Nicotine dependence, cigarettes, uncomplicated; Z86.2 Personal history of diseases of the blood and blood-forming organs and certain disorders involving the immune mechanism; Z98.84 Bariatric surgery status; Z88.6 Allergy status to analgesic agent; Z88.8 Allergy status to other drugs, medicaments and biological substances
CPT/HCPCS: 96372; 99283; J0696

== ENCOUNTER 2021-07-26 23:00 | Emergency (ER) | payer MEDICAID ==
[~2021-07-26] VITALS: Ht 160 cm; Wt 68.0 kg
[~2021-07-26 23:00] MED LIST changes: +CEPH500C PO; +FLUC100T7 PO; +FLUT9.9S NS
--- NOTE | 2021-07-26 23:08 | PHYS DOC ---
Past History Past Medical History: Anemia, Bronchitis Additional Past Medical Histor: COVID Past Surgical History: , Gastric Bypass, Hysterectomy Smoking: Cigarettes Alcohol Use: None Adult General Chief Complaint Chief Complaint: ABDOMINAL PAIN HPI HPI Patient is a 36-year-old female with a past medical history significant for gastric bypass who presents with pain in her abdomen around her umbilicus, 8 out of 10, sharp in nature that has been going on intermittently over the last week with no radiation and has had some nonbilious nonbloody emesis and decreased appetite. Denies recent traumas, travels, fevers, rash, vaginal bleeding, discharge or pain. Denies any dysuria, hematuria or history of STIs or concern thereof. Denies any diarrhea. Denies any known ill contacts. Review of Systems Review of Systems Review of systems otherwise unremarkable except noted in HPI Allergies Allergies Allergies Coded Allergies Type Severity Reaction Last Updated Verified NSAIDS (Non-Steroidal Anti-Inflamma Allergy Unknown Patient had gastric bypass 01/15/21 Yes bupropion Allergy Unknown 01/15/21 Yes paroxetine Allergy Unknown 01/15/21 Yes Physical Exam Physical Exam Constitutional: Well developed, well nourished, no acute distress, non-toxic appearance. [] HENT: Normocephalic, atraumatic, oropharynx moist, no oral exudates, nose normal. [] Eyes: conjunctiva normal, no discharge. [] Neck: Normal range of motion, no tenderness, supple, no stridor. [] Cardiovascular:Heart rate regular rhythm, no murmur [] Lungs & Thorax: No respiratory distress Abdomen: soft, no tenderness, no masses, no pulsatile masses. [] Skin: Warm, dry, no erythema, no rash. [] Back:no CVA tenderness. [] Extremities: No tenderness, no cyanosis, no clubbing, ROM intact, no edema. [] Neurologic: Alert and oriented X 3, no focal deficits noted. [] Psychologic: Affect normal, judgement normal, mood normal. [] EKG EKG [] Radiology/Procedures Radiology/Procedures [] Heart Score C/O Chest Pain: No Risk Factors: Risk Factors: DM, Current or recent (<one month) smoker, HTN, HLP, family history of CAD, obesity. Risk Scores: Risk Factors: DM, Current or recent (<one month) smoker, HTN, HLP, family h istory of CAD, obesity. Course & Med Decision Making Course & Med Decision Making Patient is a 36-year-old female who presents with abdominal pain, nausea and vomiting for a week Vital signs initially notable for soft blood pressures but with fluid resuscitation and Change normalized. Initial blood sugar 69, but patient is not diabetic and stated she did not eat much today. Able to take p.o. food Laboratory analysis not concerning. CT nonconcerning. On reassessment patient feeling much better, had eaten her food and nausea resolved and ready to be discharged home. Given work note for tomorrow. Advised to follow-up in the morning with primary care physician. Gave strict return precautions to the ED. Patient grateful, verbalized understanding and agreed with plan of discharge [] Dragon Disclaimer Dragon Disclaimer This electronic medical record was generated, in whole or in part, using a voice recognition dictation system. Departure Departure: Impression: Primary Impression: Abdominal pain Additional Impression: Nausea Disposition: HOME / SELF CARE / HOMELESS Condition: STABLE Referrals: ROSIE GARCIA (PCP) Patient Instructions: Abdominal Pain, Nausea, Adult Additional Instructions: Thank you for coming into the emergency department tonight and allowing us to take care of you. Please read the attached information carefully to go over things we discussed. Please be sure to stay well-hydrated and eat several small meals over the course of the day. Please take your prescription pain medicine and Benadryl as we discussed. You are given a work note for the next several days to be able to stay home, contact your primary care physician and taking some nutrition. Please come back to the emergency department immediately with new or concerning symptoms as we discussed. Problem Qualifiers MIGUEL KRISHNA MD July 26, 2021 23:08
[2021-07-26] MEDS ORDERED: diphenhydrAMINE 50 MG/ML VIAL IM ONE (23:30)
[2021-07-26] MEDS ORDERED: METOCLOPRAMIDE HCL 10 MG/2 ML VIAL. IM ONE (23:30)
--- NOTE | 2021-07-27 00:01 | RAD ---
CT abdomen and pelvis without contrast: Reason for examination: Abdominal pain around umbilicus. Helical images were obtained through the abdomen and pelvis with no intravenous or oral contrast admi nistered. Reconstruction was performed in sagittal and coronal planes. Exposure: One or more of the following individualized dose reduction techniques were utilized for thi s examination: 1. Automated exposure control 2. Adjustment of the mA and/or kV according to patient size 3. Use of iterative reconstruction technique. The lung bases are clear. The heart size is normal with no pericardial effusion. The liver shows a subtle hypodense lesion in the right lobe measuring approximately 2.7 cm in greates t dimension which probably represents a hemangioma. Further evaluation with ultrasound should be cons idered. There continues to be a small 8 mm hypodense lesion in the spleen laterally which is unchange d. No abnormality seen at the pancreas, adrenal glands or gallbladder. The abdominal aorta and inferior vena cava show no acute abnormalities. The colon shows no diverticulosis, diverticulitis or colitis. The appendix is not identified but ther e are no secondary changes of appendicitis. The small intestinal tract shows no abnormal dilatation, wall thickening or obstruction. The stomach shows changes consistent with gastric bypass. The kidneys show no renal masses, renal calculi, hydronephrosis or evidence of obstructive uropathy. No abnormality seen at the bladder or vaginal cuff. There is no free fluid or free air seen in the abdomen or pelvis. Phleboliths are present in the pelv is. No acute bony abnormalities are seen. IMPRESSION: 2.7 cm hypodense lesion in the right lower lobe of the liver which may represent a hemangioma. Ultras ound follow-up is recommended. This can be performed on a nonemergent basis. Stable 8 mm hypodense nodule in the spleen which may represent a cyst. Postop changes from gastric bypass. Electronically signed by: Kathy Browne MD (07/26/2021 11:58 PM) D[facility]
[2021-07-27 00:10] LABS: BACTERIA,URINE 0 /HPF (0-FEW); CLARITY,URINE CLEAR; COLOR,URINE YELLOW; GLUCOSE,URINE NEG (NEG); NITRITE,URINE NEG (NEG); RBC,URINE 0 /HPF (0-2); UROBILINOGEN,URINE 0.2 mg/dL (0.2 mg/dL); WBC,URINE 0 /HPF (0-4)
[2021-07-27 00:11] LABS: SQUAMOUS EPITHELIAL CELL,UR OCC /LPF
[2021-07-27 00:19] LABS: BASO % 0 % (0-3); EOS # 0.2 x10^3/uL (0.0-0.7); EOS % 2 % (0-3); HEMATOCRIT 40.3 % (36.0-47.0); HEMOGLOBIN 13.5 g/dL (12.0-15.5); LYMPH # 4.4 x10^3/uL (1.0-4.8); LYMPH % 44 % (24-48); MEAN CORPUSCULAR HEMOGLOBIN 30 pg (25-35); MEAN CORPUSCULAR HGB CONC 34 g/dL (31-37); MEAN CORPUSCULAR VOLUME 91 fL (79-100); MONO # 0.6 x10^3/uL (0.0-1.1); MONO % 6 % (0-9); NEUT # 4.9 x10^3uL (1.8-7.7); NEUT % 49 % (31-73); PLATELET COUNT 265 x10^3/uL (140-400); RED BLOOD COUNT 4.46 x10^6/uL (3.50-5.40); RED CELL DISTRIBUTION WIDTH 12.9 % (11.5-14.5)
[2021-07-27 00:28] LABS: CALCIUM 8.7 mg/dL (8.5-10.1); CREATININE 0.7 mg/dL (0.6-1.0); GFR 94.7
[2021-07-27 00:34] LABS: ALBUMIN 3.6 g/dL (3.4-5.0); ALBUMIN/GLOBULIN RATIO 1.2 (1.0-1.7); TOTAL BILIRUBIN 0.3 mg/dL (0.2-1.0); TOTAL PROTEIN 6.5 g/dL (6.4-8.2)
[2021-07-27] MEDS ORDERED: MORPHINE SULFATE 4 MG/ML DISP.SYRIN. IV ONE (01:00)
[2021-07-27] MEDS ORDERED: IV RINGERS SOLUTION,LACTATED 1,000 ML IV ONE (01:00)
[2021-07-27 01:09] VITALS: BP 91/54
[2021-07-27] MEDS ORDERED: ACETAMINOPHEN/CODEINE 300/30MG 4TABLET STARTPACK. PO ONE (01:30)
[2021-07-27] MEDS ORDERED: ONDANSETRON 4MG ODT 4TABLET STARTPACK. PO ONE (01:30)
== END 2021-07-27 01:23 | disposition home or self-care (01) ==
LOC: ER 23:00
DX: R10.13 Epigastric pain (principal); R11.2 Nausea with vomiting, unspecified; R63.0 Anorexia; F17.210 Nicotine dependence, cigarettes, uncomplicated; Z86.2 Personal history of diseases of the blood and blood-forming organs and certain disorders involving the immune mechanism; Z98.890 Other specified postprocedural states; Z98.84 Bariatric surgery status; Z90.710 Acquired absence of both cervix and uterus; Z88.6 Allergy status to analgesic agent; Z88.8 Allergy status to other drugs, medicaments and biological substances
CPT/HCPCS: 36415; 74176; 80053; 81001; 81025; 82947; 83690; 85025; 96372; 96374; 99285; J1200; J2270; J2765; J7120; Q0162